=== PATIENT | female | born 1950 | race Caucasian/White ===

== ENCOUNTER 2017-07-27 10:29 | Inpatient (IN) | payer MEDICARE, BC ==
--- NOTE | 2017-07-14 16:45 | HP ---
HISTORY AND PHYSICAL: DATE OF ADMISSION/SURGERY: 07/27/17 DATE OF OFFICE VISIT: 07/14/17. SURGEON: Marilynn Chopra MD * (DICTATED BY CHARISMA BEJARANO) PROCEDURE: Right total knee arthroplasty. CHIEF COMPLAINT: Right knee pain. HISTORY OF PRESENT ILLNESS: Ms. Mascorro is a 67-year-old female with complaints of right knee pain secondary to advanced osteoarthritis. She has failed conservative management and has elected to proceed with a right total knee arthroplasty, which is scheduled for 07/27/[address] Chopra. PAST MEDICAL HISTORY: Rheumatic disease, tricuspid valve, mitral valve disorder , tachycardia, hypothyroidism, depression, migraines, history of breast cancer, and sleep apnea. PAST SURGICAL HISTORY: Hysterectomy, appendectomy, lumpectomy, right knee ligament repair, right knee arthroscopy, bilateral feet surgery, tonsillectomy. CURRENT MEDICATIONS: 1. Sumatriptan. 2. Verapamil. 3. Cymbalta. 4. Diazepam. 5. Multivitamin. 6. Aspirin. 7. Levothyroxine. 8. Reclast. 9. Vitamin D3. 10. CoQ10. 11. Pravastatin sodium. ALLERGIES: None. FAMILY HISTORY: Cancer and heart disease. SOCIAL HISTORY: A 67-year-old female. Lives with her spouse. She does not smoke or use drugs. REVIEW OF SYSTEMS: A complete 14-point review of systems was reviewed with the patient, it was all negative or noncontributory. PHYSICAL EXAMINATION GENERAL: She is well developed, well nourished, in no acute distress. VITAL SIGNS: She stands 5 feet 8 inches tall, weighs 187 pounds. Her blood pressure is 108/70, her heart rate is 69. HEENT: Normocephalic, atraumatic. NECK: Supple. No palpable lymph nodes. PULMONARY: The lungs are clear to auscultation bilaterally. CARDIO: Regular rate and rhythm. Strong S1, S2. ABDOMEN: Soft, nontender, and nondistended. MUSCULOSKELETAL: Right lower extremity, the skin is intact. There are no open wounds or abrasions. Tenderness over the medial and lateral joint line. 5 to 125 degrees range of motion. 2+ dorsalis pedis pulses, intact sensation. 5/5 lower extremity strength. NEUROLOGICAL: Alert and oriented x3. Cranial nerves II through XII are intact. ASSESSMENT AND PLAN: Ms. Mascorro is a 67-year-old female with complaints of right knee pain secondary to advanced osteoarthritis. She has failed conservative management and has elected to proceed with a right total knee arthroplasty, which is scheduled for 07/27/[address] Chopra discussed the risks and benefits of the surgery at today's visit and all of her questions were answered. Percocet, Coumadin, and Colace were sent to her pharmacy for postoperative pain control and DVT prophylaxis. She will see Dr. Chopra back 2 weeks after the surgery. CHARISMA BEJARANO [id number]/[facility] #: [id number] YOAV
[~2017-07-27 10:29] MED LIST: Buffered Lidocaine 0.9% SYRIN* 5 ML/SYR SYRINGE INTRADERM ONE; Dexamethasone IV* 4 MG/ML 1 ML (4 MG) IV SLOW PU ONE; Famotidine IV* 10 MG/ML 2 ML (20 mg) IV ONE
[2017-07-27] MEDS ORDERED: Famotidine IV* 10 MG/ML 2 ML (20 mg) ONE (10:40)
[2017-07-27] MEDS ORDERED: Dexamethasone IV* 4 MG/ML 1 ML (4 MG) ONE (10:40)
[2017-07-27] MEDS ORDERED: Buffered Lidocaine 0.9% SYRIN* 5 ML/SYR SYRINGE ONE (10:40)
[2017-07-27] MEDS ORDERED: ceFAZolin 2 GM PREMIX (*) 50 ML IVPB ONE (10:40)
[2017-07-27] MEDS ORDERED: Midazolam* 1 MG/ML 5 ML VIAL (5 MG) ONE ×2 (13:22→15:22)
[2017-07-27] MEDS ORDERED: KETAMINE HCL* 50 MG/ML 10 ML VIAL ONE (13:22)
[2017-07-27] MEDS ORDERED: Morphine PF AMP (0.5MG/ML)* 5 MG/10 ML AMP ONE (13:22)
[2017-07-27] MEDS ORDERED: Lidocaine 2% PF * 5 ML VIAL ONE (14:28)
[2017-07-27] MEDS ORDERED: Ondansetron INJ* 2 MG/ML VIAL IV PRN (14:59)
[2017-07-27] MEDS ORDERED: oxyCODONE/Acetamin 5/325 MG* TAB PO PRN (14:59)
[2017-07-27] MEDS ORDERED: DiMENhydriNATE IV* 50 MG/ML VIAL IV PUSH PRN (14:59)
[2017-07-27] MEDS ORDERED: Nalbuphine* 20 MG/ML 1 ML VIAL IV PRN ×2 (14:59)
[2017-07-27] MEDS ORDERED: Naloxone* 0.4 MG/ML 1 ML VIAL IV PRN (14:59)
[2017-07-27] MEDS ORDERED: Scopolamine 1.5 mg* PATCH TRANSDERM SCH (15:00)
[2017-07-27] MEDS ORDERED: Ropivacaine* 300 MG in NS 0.9% 250 ML* 240 ML EPIDURAL SCH (15:00)
[2017-07-27] MEDS ORDERED: Polyethylene Glycol 3350* 17 GM PACKET PO PRN (16:46)
[2017-07-27] MEDS ORDERED: Bisacodyl SUPP* 10 MG SUPP PR PRN (16:46)
[2017-07-27] MEDS ORDERED: Acetaminophen TAB* 325 MG PO PRN (16:46)
[2017-07-27] MEDS ORDERED: SUMAtriptan SQ* 6 MG/0.5 ML VIAL SUBCUT PRN (16:50)
[2017-07-27] MEDS ORDERED: VERAPAMIL HCL 120 MG PO SCH ×2 (18:00)
--- NOTE | 2017-07-27 19:09 | RAD ---
INDICATION: Status post total right knee replacement surgery. TECHNIQUE: 2 views of the right knee were obtained. FINDINGS: The patient is status post total right knee replacement surgery. The bones and prostheses are in normal alignment. There is a surgical drain present along the anterior aspect of the knee. IMPRESSION: STATUS POST TOTAL RIGHT KNEE REPLACEMENT SURGERY.
[2017-07-27] MEDS ORDERED: oxyCODONE/Acetamin 5/325 MG* TAB ONE (21:48)
[2017-07-27] MEDS: oxyCODONE/Acetamin 5/325 MG* TAB PO PRN (21:54)
[2017-07-27] MEDS ORDERED: Warfarin TAB(*) 6 MG PO ONE (22:30)
[2017-07-27] MEDS: Docusate CAP* 100 MG PO SCH (22:44)
[2017-07-27] MEDS: CMCS: Pravastatin (NF) 20 MG TAB PO SCH (22:44)
[2017-07-27] MEDS: ceFAZolin 1 GM VIAL(*) 1 GM in NS 0.9% 50 ML* 50 ML IVPB SCH (22:45)
[2017-07-27] MEDS: DULoxetine DR CAP* 30 MG CAP.DR PO SCH (22:49)
--- NOTE | 2017-07-28 00:54 | CONS ---
CC: Marilynn Chopra MD; Humaira Vu MD* CONSULTATION REPORT: DATE OF CONSULT: 07/27/17 PROVIDE REQUESTING CONSULTATION: Marilynn Chopra MD ATTENDING PHYSICIAN: Alfonzo Oleary MD (dictated by Daniela Conte NP). REASON FOR CONSULTATION: Medical co-management in a patient with a history of rheumatic disease, valvular heart disease, paroxysmal SVT, hypothyroidism, and sleep apnea, who presented to the hospital for an elective right total knee arthroplasty with Dr. Chopra today. HISTORY OF PRESENT ILLNESS: Ms. Mascorro is a 67-year-old female with past medical history significant for rheumatic disease, valvular heart disease, tachycardia, SVT, hypothyroidism, depression, migraines, remote history of breast cancer, sleep apnea, palpitations, and osteoarthritis who presented to the hospital today for an elective right total knee arthroplasty with Dr. Chopra. According to the patient, she has been in her usual state of health leading up to her elective knee replacement. The patient had preop labs drawn on 07/14/17 at which time, she also had a urinalysis that had E. coli in it. The patient was asymptomatic at that time and the patient had 10 to 25,000 of E. coli. Due to her upcoming surgery, she was placed on nitrofurantoin and completed a seven-day course. She currently denies any urinary tract symptoms and had urinalysis with no growth repeated on 07/25/17. The patient denies any recent fever, chills, chest pain, shortness of breath, nausea, vomiting, or diarrhea. The patient currently is complaining of some itchiness since her spinal anesthesia. The Hospitalists were asked to evaluate the patient and assess with co-medical management during her postoperative period. PAST MEDICAL HISTORY: 1. Rheumatic disease. 2. Valvular heart disease. 3. History of supraventricular tachycardia. 4. Tachycardia. 5. Hypothyroidism. 6. Depression. 7. Migraines. 8. Breast cancer, status post chemo and radiation. 9. Palpitations. 10. Obstructive sleep apnea, not currently treated. 11. Osteoarthritis. PAST SURGICAL HISTORY: 1. Status post hysterectomy. 2. Status post appendectomy. 3. Status post right breast lumpectomy. 4. Status post right knee ligament repair. 5. Status post right knee arthroscopy. 6. Status post bilateral foot surgery. 7. Status post tonsillectomy. HOME MEDICATIONS: Include: 1. Imitrex 6 mg/0.5 mL 1 vial subcutaneous as needed for severe headache, may repeat once in 24 hours. 2. Verapamil ER 120 mg oral daily. 3. Cymbalta 90 mg oral daily. 4. Diazepam 5 mg oral 2 to 3 times daily as needed for anxiety. 5. Multivitamin 1 tablet oral daily. 6. Aspirin 81 mg oral daily. 7. Levothyroxine 75 mcg oral daily. 8. Reclast injection yearly. 9. Vitamin D3 2000 units oral daily. 10. COQ10 200 mg oral daily. 11. Pravastatin 20 mg oral daily. 12. Vitamin B12 1000 mcg oral daily. 13. Fluticasone 50 mcg 2 sprays each nares daily as needed for nasal congestion. 14. Excedrin 500/65 mg oral as needed for headache. ALLERGIES: No known drug allergies. FAMILY HISTORY: The patient's mother had a history of colon cancer and breast cancer. The patient's father had a history of a myocardial infarction and passed of pancreatic cancer. Her grandparents may have had a history of coronary artery disease that she is unsure. She denies any family history of diabetes mellitus. SOCIAL HISTORY: The patient is a former smoker smoking one and a half pack a day for approximately 12 years. She quit at age 25. She denies tobacco or recreational drug use. She lives with her . Her , Deon Mascorro, will be her surrogate decision maker in the event she is unable to make decision for herself. REVIEW OF SYSTEMS: I performed a 14-point review of systems. All the pertinent positives and negatives are mentioned in the history of present illness. The remaining review of systems are negative. PHYSICAL EXAMINATION: General Appearance: The patient is alert, pleasant, appears to be in no acute distress. Vital Signs: Temperature 98.6, heart rate 67, respiratory rate 16, O2 sat 100% on 3 L via nasal cannula, blood pressure 100/61. HEENT: Normocephalic, atraumatic. Pupils are equal and reactive to light. Extraocular movements are intact. Respiratory: There is no accessory muscle use. Lungs are clear to auscultation bilaterally. Cardiovascular: Regular rate and rhythm. S1 and S2 present. There are no murmurs, rubs, or gallops. Abdomen: Soft, nontender, nondistended. Bowel sounds present present x4. Extremities: There is no lower extremity edema. DP and PT pulses are 2+ and symmetric. Musculoskeletal: There is no clubbing or cyanosis noted. At this point, the patient is unable to dorsi and plantarflex due to her spinal anesthesia and epidural. She has limited feeling in her lower extremities and reports tingling. Neurological: The patient is alert and oriented x4. Cranial nerves II through XII are grossly intact. Psychological: The patient is calm and cooperative. Skin: There are no rashes or abnormalities seen. The patient has a dressing to her right knee, which is clean, dry, and intact with a Hemovac drain in place draining serosanguineous drainage. DIAGNOSTIC STUDIES/LAB DATA: Preoperative labs from 07/14/17, sodium 140, potassium 3.9, chloride 104, CO2 31, BUN 17, creatinine 0.70, and glucose 84. White blood cell count 6.3, hemoglobin 13.5, hematocrit 40, and platelet count 223,000. Urinalysis significant for UTI and E. coli. Repeat urinalysis on with no growth. Hemoglobin A1c from 07/14/17 5.7. IMPRESSION: Ms. Mascorro is a 67-year-old female with past medical history significant for rheumatic disease, valvular heart disease, supraventricular tachycardia, tachycardia, hypothyroidism, depression, migraines, breast cancer, obstructive sleep apnea, not treated, palpitations, and osteoarthritis, who presented to the hospital today for an elective right total knee arthroplasty with Dr. Chopra. Hospitalists were asked to assist with co-medical management in this patient during her hospitalization. ASSESSMENT AND PLAN: 1. Status post right total knee arthroplasty. Management per Orthopedic Surgery. The patient will be on epidural overnight and then changed to pain regimen per Orthopedic Surgery. The patient will also be placed on a bowel regimen. Her H and H will be trended. She will have a urinary catheter in place until postop day #1 after her epidural was removed. The patient will have physical therapy and occupational therapy. 2. Recent urinary tract infection. The patient had an E. coli urinary tract infection with her preoperative labs. Her urinary currently has no growth and she completed a 7-day course of antibiotics. 3. History of impaired glucose. The patient's hemoglobin A1c was 5.7. 4. History of palpitations and supraventricular tachycardia. The patient will be continued on her home verapamil with holding parameters for systolic blood pressures less than a 100. 5. Valvular heart disease with trace aortic insufficiency, mitral valve insufficiency, and mitral valve prolapse. We will just monitor the patient's fluid status and monitor for any other problems. 6. Obstructive sleep apnea. The patient does not use a CPAP as she was unable to tolerate in the past and she does not have a dental appliance . She will be monitored in 2 hours in PACU and then be monitored on capnography overnight. 7. History of breast cancer, status post right breast lumpectomy, chemo and radiation. 8. Hypothyroidism. The patient's last TSH was 1.52 on 04/11/17. She will be continued on her home levothyroxine. 9. Migraines. The patient will be continued on her home Imitrex as needed. 10. Anxiety. The patient will be continued on as needed diazepam. The patient reports that she rarely uses the diazepam at home. 11. Fluids, electrolytes, and nutrition. The patient will be on clear liquids. Advance diet as tolerated to regular diet. 12. Code status: Full code. 13. DVT prophylaxis: The patient would be on Lovenox bridged to warfarin per Orthopedic Surgery. 14. Disposition. Inpatient with disposition per Orthopedic Surgery. TIME SPENT: Time for this consultation was approximately 45 minutes, greater than half of that was spent with the patient and discussing medications , past medical history, and the events leading up to her arrival today and performing a physical examination. The case has been reviewed with the attending, Dr. Oleary, who agrees with the plan of care. DANIELA CONTE, BECKY [id number]/[facility] #: [id number] YOAV
[2017-07-28] MEDS: oxyCODONE/Acetamin 5/325 MG* TAB PO PRN ×4 (03:58→19:42)
[2017-07-28] MEDS: Levothyroxine TAB* 75 MCG TAB PO SCH (05:50)
[2017-07-28] MEDS: ceFAZolin 1 GM VIAL(*) 1 GM in NS 0.9% 50 ML* 50 ML IVPB SCH ×2 (05:50→14:02)
[2017-07-28] MEDS ORDERED: tiZANidine TAB* 2 MG PO PRN (06:00)
[2017-07-28] MEDS ORDERED: oxyCODONE/Acetamin 5/325 MG* TAB PO PRN (06:00)
[2017-07-28] MEDS ORDERED: Morphine INJ* 2 MG/ML 1 ML SYRINGE (TWO MG - NEW SYRINGE VERSION) IV PRN (06:00)
[2017-07-28] MEDS ORDERED: diPHENhydraMINE IV* 50 MG/ML 1 ml VIAL (BENADRYL) IV PRN (06:00)
[2017-07-28] MEDS ORDERED: Ondansetron TAB* 4 MG PO PRN (06:00)
[2017-07-28] MEDS ORDERED: Diazepam TAB(*) 5 MG PO PRN (06:00)
[2017-07-28 06:43] LABS: Hematocrit 27 % (35-47); Hemoglobin 8.9 g/dl (12.0-16.0)
[2017-07-28 06:57] LABS: BUN/Creatinine Ratio 13.2 (8-20); Calcium 7.6 mg/dL (8.6-10.3); EGFR African American 60.8 (>60); EGFR Non-African American 47.3 (>60); Potassium 4.4 mmol/L (3.5-5.0)
[2017-07-28] MEDS: oxyCODONE TAB* 5 MG TAB PO PRN ×2 (07:40→13:07)
[2017-07-28] MEDS: DULoxetine DR CAP* 30 MG CAP.DR PO SCH ×2 (08:23→17:40)
[2017-07-28] MEDS: Magnesium Hydroxide LIQ* 30 ML UDC PO PRN (08:23)
[2017-07-28] MEDS: Docusate CAP* 100 MG PO SCH ×2 (08:23→19:42)
--- NOTE | 2017-07-28 09:26 | PN ---
Subjective Date of Service: 07/28/17 Interval History: Patient seen and examined at bedside. Denies fever, chills, shortness of breath , chest discomfort, N/V/D. Pt states that her blood pressure runs lower at baseline. Family History: Unchanged from Admission Social History: Unchanged from Admission Past Medical History: Unchanged from Admission Objective Active Medications: Acetaminophen (Tylenol Tab*) 650 mg PO Q4H PRN Reason: PAIN OR TEMPERATURE Bisacodyl (Dulcolax Supp*) 10 mg PA DAILY PRN Reason: constipation Diazepam (Valium Tab(*)) 5 mg PO TID PRN Reason: ANXIETY Diphenhydramine HCl (Benadryl Iv*) 12.5 mg IV Q6H PRN Reason: PRURITIS Docusate Sodium (Colace Cap*) 100 mg PO BID DOROTHY Duloxetine HCl (Cymbalta Cap*) 30 mg PO QAM DOROTHY Duloxetine HCl (Cymbalta Cap*) 60 mg PO QPM DOROTHY Enoxaparin Sodium (Lovenox(*)) 30 mg SUBCUT Q24H DOROTHY Cefazolin Sodium 1 gm/ Sodium (Chloride) 50 mls @ 200 mls/hr IVPB Q8H DOROTHY Stop: 07/28/17 14:44 Lactated Ringer's (Lactated Ringers 1000 Ml Bag*) 1,000 mls @ 100 mls/hr IV PER [facility] Lactulose (Lactulose*) 30 ml PO Q6H PRN Reason: constipation Levothyroxine Sodium (Synthroid Tab*) 75 mcg PO DAILY@0600 DOROTHY Magnesium Hydroxide (Milk Of Magnesia Liq*) 30 ml PO Q6H PRN Reason: constipation Morphine Sulfate (Morphine Inj (Syringe)*) 2 mg IV Q2H PRN Reason: PAIN Nf: Verapamil Hcl [ Verapamil Hcl Er] 120 Mg 120 mg PO QPM DOROTHY Ondansetron HCl (Zofran Tab*) 4 mg PO Q6H PRN Reason: NAUSEA Oxycodone HCl (Roxycodone Tab*) 10 mg PO Q4H PRN Reason: SEVERE PAIN Oxycodone/Acetaminophen (Percocet 5/325 Tab*) 1 tab PO Q3H PRN Reason: PAIN - MODERATE Oxycodone/Acetaminophen (Percocet 5/325 Tab*) 2 tab PO Q3H PRN Reason: PAIN - MODERATE Pharmacy Profile Note (Scopolomine Patch Remove*) 1 note PATCH OFF .AFTER 72 HOURS ONE Stop: 07/30/17 15:05 Pharmacy Profile Note (Coumadin Daily Reminder*) 1 note FOLLOW UP 1700 DOROTHY Polyethylene Glycol/Electrolytes (Miralax*) 17 gm PO DAILY PRN Reason: Constipation Pravastatin Sodium (Pravachol (Nf)) 20 mg PO QPM DOROTHY Sumatriptan Succinate (Imitrex Sq*) 6 mg SUBCUT ONCE PRN Reason: MIGRAINES Tizanidine HCl (Zanaflex Tab*) 4 mg PO TID PRN Reason: LEG CRAMPING Vital Signs 07/27/17 07/27/17 07/27/17 10:45 16:47 16:50 Temperature 97.2 F 98.6 F Pulse Rate 72 76 70 Respiratory 16 14 14 Rate Blood Pressure 111/63 95/82 104/60 (mmHg) O2 Sat by Pulse 98 98 97 Oximetry 07/27/17 07/27/17 07/27/17 16:55 16:59 17:15 Temperature Pulse Rate 68 68 66 Respiratory 14 14 16 Rate Blood Pressure 104/63 104/63 102/63 (mmHg) O2 Sat by Pulse 99 99 100 Oximetry 07/27/17 07/27/17 07/27/17 17:30 17:45 18:00 Temperature Pulse Rate 67 58 67 Respiratory 16 18 16 Rate Blood Pressure 101/61 97/64 100/62 (mmHg) O2 Sat by Pulse 100 98 99 Oximetry 07/27/17 07/27/17 07/27/17 18:30 19:00 19:05 Temperature Pulse Rate 62 61 63 Respiratory 16 16 18 Rate Blood Pressure 101/62 103/62 104/56 (mmHg) O2 Sat by Pulse 100 100 100 Oximetry 07/27/17 07/27/17 07/27/17 19:24 19:30 19:45 Temperature Pulse Rate 65 65 63 Respiratory 18 18 18 Rate Blood Pressure 100/59 108/58 106/74 (mmHg) O2 Sat by Pulse 100 100 100 Oximetry 07/27/17 07/27/17 07/27/17 19:55 20:25 20:30 Temperature 96.7 F Pulse Rate 67 68 Respiratory 18 18 18 Rate Blood Pressure 101/87 101/56 (mmHg) O2 Sat by Pulse 100 100 Oximetry 07/27/17 07/27/17 07/27/17 21:36 21:54 21:59 Temperature 97.3 F 96.7 F Pulse Rate 68 68 Respiratory 16 18 18 Rate Blood Pressure 94/52 101/56 (mmHg) O2 Sat by Pulse 97 100 Oximetry 07/27/17 07/27/17 07/27/17 22:13 23:13 23:30 Temperature Pulse Rate Respiratory 18 18 18 Rate Blood Pressure (mmHg) O2 Sat by Pulse 95 Oximetry 07/27/17 07/28/17 07/28/17 23:54 00:00 00:52 Temperature Pulse Rate Respiratory 12 13 Rate Blood Pressure 98/67 (mmHg) O2 Sat by Pulse 93 Oximetry 07/28/17 07/28/17 07/28/17 01:00 02:00 03:58 Temperature Pulse Rate Respiratory 8 8 18 Rate Blood Pressure (mmHg) O2 Sat by Pulse 99 Oximetry 07/28/17 07/28/17 07/28/17 04:00 04:29 05:56 Temperature 97 F Pulse Rate 62 Respiratory 10 12 12 Rate Blood Pressure 94/54 (mmHg) O2 Sat by Pulse 100 100 98 Oximetry 07/28/17 07/28/17 07/28/17 05:58 07:40 07:49 Temperature 97.6 F Pulse Rate 71 Respiratory 12 12 15 Rate Blood Pressure 99/52 (mmHg) O2 Sat by Pulse 100 Oximetry Oxygen Devices in Use Now: None Appearance: NAD, sitting up in a chair Ears/Nose/Mouth/Throat: Mucous Membranes Moist Respiratory: Symmetrical Chest Expansion and Respiratory Effort, Clear to Auscultation Cardiovascular: NL Sounds; No Murmurs; No JVD, RRR Abdominal: NL Sounds; No Tenderness; No Distention Extremities: No Edema Skin: No Rash or Ulcers, - - Dressing to right knee clean, dry and intact Neurological: Alert and Oriented x 3, NL Muscle Strength and Tone Lines/Tubes/Other Access: Clean, Dry and Intact Peripheral IV - site benign Nutrition: Taking PO's Result Diagrams: 07/28/17 06:16 07/28/17 06:16 Assess/Plan/Problems-Billing Assessment: Ms. Mascorro is a 67 yo female with PMH significant for rheumatic disease, valvular heart disease, SVT, tachycardia, palpitations, hypothyroidism, depression, migraines, anxiety, breast CA, LINDY, and osteoarthritis who presented to the hospital for an elective right total knee replacement with Dr. Chopra on 07/27/17. - Patient Problems (1) Status post total right knee replacement Code(s): Z96.651 - PRESENCE OF RIGHT ARTIFICIAL KNEE JOINT SNOMED Code(s): 7220561795510 Comment: - POD #1, management per orthopedics - Trend HH - Continue OT/PT, pain management and bowel regimen (2) History of PSVT (paroxysmal supraventricular tachycardia) Code(s): Z86.79 - PERSONAL HISTORY OF OTHER DISEASES OF THE CIRCULATORY SYSTEM SNOMED Code(s): 818733966349252 Comment: - with palpitations - Continue verapamil with hold parameters (3) Valvular heart disease Comment: - Trace AI, MV I, MVP (4) LINDY (obstructive sleep apnea) Code(s): G47.33 - OBSTRUCTIVE SLEEP APNEA (ADULT) (PEDIATRIC) SNOMED Code(s): 06517732 Comment: - Not treated, unable to tolerate CPAP (5) Hypothyroidism Code(s): E03.9 - HYPOTHYROIDISM, UNSPECIFIED SNOMED Code(s): 89910412 Comment: - TSH 1.52 on 04/11/17 - Continue levothyroxine (6) History of breast cancer Code(s): Z85.3 - PERSONAL HISTORY OF MALIGNANT NEOPLASM OF BREAST SNOMED Code( s): 003938094 Comment: - S/P right breast lumpectomy, chemo and radiation (7) Migraines Code(s): G43.909 - MIGRAINE, UNSP, NOT INTRACTABLE, WITHOUT STATUS MIGRAINOSUS SNOMED Code(s): 34647004 (8) Anxiety Code(s): F41.9 - ANXIETY DISORDER, UNSPECIFIED SNOMED Code(s): 06792287 Comment: - Continue diazepam PRN (9) DVT prophylaxis Code(s): KTU4724 - SNOMED Code(s): 233752497 Comment: - Lovenox bridge to warfarin (10) Full code status Code(s): Z78.9 - OTHER SPECIFIED HEALTH STATUS SNOMED Code(s): 825003302 Status and Disposition: Inpatient. Disposition per Orthopedics. Thank you for this consult. Will sign off at this time. Please call with any questions.
--- NOTE | 2017-07-28 11:37 | PN ---
Progress Note - Progress Note Date of Service: 07/28/17 SOAP: Subjective: []Patient seen OOB in chair, doing well, minimal complaints of right knee pain. Denies SOB, CP, or dizziness. A little "foggy" from the Percocet just given. Objective: [] Vital Signs Temp 97.6 F 07/28/17 07:49 Pulse 71 07/28/17 07:49 Resp 14 07/28/17 09:44 BP 99/52 07/28/17 07:49 Pulse Ox 99 07/28/17 11:28 Intake & Output 07/27/17 07/28/17 07/28/17 18:59 06:59 18:59 Intake Total 2450 1190 120 Output Total 850 750 Balance 1600 440 120 Weight 188 lb 3.2 oz Intake: IV Fluids 2450 890 LR 2400 890 NS 50ML, Cefazolin 2G 50 Oral 300 120 Output: [place] 850 750 Laboratory Results - last 24 hr 07/28/17 07/28/17 07/28/17 06:16 06:16 06:16 Hgb 8.9 L Hct 27 L INR (Anticoag Therapy) 0.98 Sodium 142 Potassium 4.4 Chloride 108 Carbon Dioxide 27 Anion Gap 7 BUN 15 Creatinine 1.14 H Est GFR ( Amer) 60.8 Est GFR (Non-Af Amer) 47.3 BUN/Creatinine Ratio 13.2 Glucose 139 H Calcium 7.6 L Right knee dressings dry and intact, hemovac drain discontinued without complication this am by Dr. Chopra Flexion to 90 while in chair calf NT and soft neuro intact distally with + PF/DF right ankle Assessment: []s/p Right total knee arthoplasty POD #1 Plan: []PT/OT WBAT RLE Home when PT/OT goals mastered Coumadin with Lovenox bridge- 8 mg today
[2017-07-28] MEDS: Enoxaparin(*) 30 MG/0.3 ML SYR SUBCUT SCH (14:02)
[2017-07-28] MEDS ORDERED: Warfarin TAB(*) 4 MG PO ONE (17:00)
[2017-07-28] MEDS: CMCS: Pravastatin (NF) 20 MG TAB PO SCH (17:39)
[2017-07-28] MEDS ORDERED: Verapamil SR TAB* 240 MG PO SCH (18:00)
--- NOTE | 2017-07-28 19:13 | OP ---
DATE OF OPERATION: 07/27/17 - ROOM #347 DATE OF : 46 SURGEON: Marilynn Chopra MD [facility] CONSULTANT: CHARISMA Evangelista. Ms. Silva did help throughout the procedure with preparation of the leg, wound retraction, manipulation of the knee and wound closure. ANESTHESIOLOGIST: Dr. García. ANESTHESIA: Spinal. PRE-OP DIAGNOSIS: Severe end-stage degenerative osteoarthritis of the right knee joint with valgus deformity. POST-OP DIAGNOSIS: Severe end-stage degenerative osteoarthritis of the right knee joint with valgus deformity. OPERATIVE PROCEDURE: Right total knee arthroplasty. COMPLICATIONS: None. ESTIMATED BLOOD LOSS: 300 cc. TOURNIQUET TIME: 47 minutes. SPECIMENS: Bone and cartilage sent to Pathology. HARDWARE USED: Cemented [employer] total knee arthroplasty hardware. Two packages of Simplex bone cement. For the femur, a size 5 right posterior stabilized Legion narrow femoral component. For the tibia, a size 4 tibial base plate. For the insert, an 11 mm posterior stabilized articular insert and for the patella, 32-mm 3-peg all poly patella with 7.5 thickness. BRIEF HISTORY/INDICATIONS: Ms. Mascorro is a 67-year-old female with years of increasingly severe right knee pain. She also developed valgus deformity over the last 2 years. Conservative treatment with antiinflammatories, pain medications, intraocular injections, and physical therapy did not resolve her pain. Radiographs showed severe end-stage valgus arthritis of the knee joint. Due to continued pain and decreased quality of life, the patient elected to undergo right total knee arthroplasty. Informed consent was obtained from the patient. She understood the risks of surgery included, but were not limited to bleeding, infection, damage to nearby structures, continued pain, need for further surgery, intraoperative fracture, nerve palsy, hardware failure or loosening, knee stiffness, loss of motion, stroke, heart attack, blood clot, and . She wished to proceed. INTRAOPERATIVE FINDINGS: Intraoperatively, the patient was noted to have a 15 degrees valgus deformity at the start of the case. She had severe tricompartmental wear of the cartilage. Excessive wear of the lateral tibial plateau with abnormal osteophyte formation. Lateral femoral condylar hypoplasia was noted. DESCRIPTION OF PROCEDURE: Ms. Mascorro was identified in the preanesthesia unit. Her right lower extremity was marked as the correct operative side. Informed consent was signed and placed in the chart. The patient was taken to the operating room and placed under spinal anesthesia. A Mendoza catheter was placed. Tourniquet was placed on the right thigh. The right lower extremity was prepped and draped in the usual sterile fashion. Preop time-out was made to correctly identify the patient's side and site. Appropriate preoperative antibiotics were given within 1 hour of incision. Tourniquet was inflated. A 12 cm midline incision was made with a 10 blade and carried down to the extensor mechanism. A new 10 blade used to make a standard medial parapatellar arthrotomy. The patella was subluxed laterally. Electrocautery was used to subperiosteally elevate soft tissue off the superomedial tibia to the mid sagittal plane. The knee was flexed up. There was no anterior horn of the lateral meniscus. There was no ACL. A drill was used to enter the distal femur. Intramedullary distal femoral cutting guide was pinned on the distal femur. Oscillating saw was used to make the appropriate distal femoral cut. Next, the external rotation guide pinned on the distal femur. The distal femur was sized to a size 5. Size 5 multi-cutting jig was pinned on the distal femur and the oscillating saw was used to make the appropriate 4 chamfer cuts. PCL was completely released. The tibia was subluxed anteriorly. Extramedullary tibial cutting guide was pinned on the proximal tibia. Oscillating saw was used to make the proximal tibial cut. The bone was carefully removed. The knee was brought out into full extension. The spacer block had good fit and full extension. Medial and lateral ligamentous balancing was acceptable. Flexion and extension gaps were well balanced. Lamina program checker was placed both medially and laterally. Any remaining meniscus was carefully removed from the medial and lateral compartments. Posterior osteophytes were removed using a curved osteotome. Trial 5 right narrow femoral component was impacted on to the distal femur and had good fit. The box for this posterior stabilized implant was prepared using a reamer and box cut osteotome. Trial size 4 tibial tray and an 11-mm insert trial was placed. The knee was taken through range of motion. There was full extension to 130 degrees of flexion with satisfactory patellofemoral tracking. The patella was everted. A 7 mm of patellar bone and cartilage was carefully removed using an oscillating saw. The patella was sized to a size 32. Three peg holes were drilled through the size 32 guide. A 7.5 thickness 32 patella trial was placed. The knee was taken through range of motion and had satisfactory patellofemoral tracking. All trials were carefully removed. The tibia was subluxed anteriorly and sized to a size 4. Proximal tibia was prepared using a size 4 keel punch. All bony cut surfaces were copiously irrigated with sterile saline and dried. The final implants were cemented into place starting with the tibia followed by the femur and last the patella. An 11-mm insert trial was placed and the knee was brought out into full extension. The tourniquet was turned down at 47 minutes. The knee was copiously irrigated with sterile saline. Once the cement had fully cured, the insert trial was removed. Any excess cement was carefully removed from around the hardware and capsule. Electrocautery was used to obtain meticulous hemostasis. An 11 mm insert trial was locked into position on the tibial tray. Stability of the insert was checked and rechecked and noted to be stable. The knee was copiously irrigated with sterile saline. The extensor mechanism was reapproximated using interrupted #1 Vicryl over a medium Hemovac drain. The rest of the incision was closed in a layered fashion using 0 and 2-0 Vicryl. The skin was closed using running 3-0 nylon suture. Sterile Xeroform, 4x4's, and Webril were used to cover the incision. Ayan wrap and cold pack were placed over this. The patient's anesthesia was reversed without difficulty. She was taken to the PACU in stable condition. Intended weightbearing will be weightbearing as tolerated. Intended DVT prophylaxis will be Coumadin with a Lovenox bridge. [id number]/[facility] #: [id number] [facility]
[2017-07-29] MEDS: oxyCODONE/Acetamin 5/325 MG* TAB PO PRN ×4 (02:55→15:01)
[2017-07-29] MEDS: Levothyroxine TAB* 75 MCG TAB PO SCH (06:00)
[2017-07-29 08:41] LABS: Hematocrit 25 % (35-47); Hemoglobin 8.5 g/dl (12.0-16.0); Mean Platelet Volume 8 um3 (7.4-10.4)
[2017-07-29 08:52] LABS: BUN/Creatinine Ratio 29.5 (8-20); Calcium 8.1 mg/dL (8.6-10.3); EGFR African American 125.1 (>60); EGFR Non-African American 97.2 (>60); Potassium 3.9 mmol/L (3.5-5.0)
[2017-07-29] MEDS: Docusate CAP* 100 MG PO SCH (08:52)
[2017-07-29] MEDS: Magnesium Hydroxide LIQ* 30 ML UDC PO PRN (08:52)
[2017-07-29] MEDS: DULoxetine DR CAP* 30 MG CAP.DR PO SCH (08:52)
--- NOTE | 2017-07-29 09:15 | PN ---
Progress Note - Progress Note Date of Service: 07/29/17 SOAP: Subjective: Pt. is alert, pain controlled, moderate today, using crutches. Objective: RLE - dressing changed, inc c/d/i. distally nvi. mod effusion. Vital Signs: Temp Pulse Resp BP Pulse Ox 98.5 F 94 16 94/45 96 07/29/17 08:21 07/29/17 08:21 07/29/17 08:54 07/29/17 08:21 07/29/17 08:54 Laboratory Results - last 24 hr 07/29/17 07/29/17 07/29/17 08:18 08:18 08:18 Hgb 8.5 L Hct 25 L Plt Count 150 MPV 8 INR (Anticoag Therapy) 1.35 H Sodium 134 D Potassium 3.9 Chloride 101 Carbon Dioxide 28 Anion Gap 5 BUN 18 Creatinine 0.61 Est GFR ( Amer) 125.1 Est GFR (Non-Af Amer) 97.2 BUN/Creatinine Ratio 29.5 H Glucose 126 H Calcium 8.1 L Assessment: 67 yo F pod 2 s/p RTKA Plan: pt/ot wbat rle lovenox today coumadin for 1 mth d/c to home today
[2017-07-29 12:46] VITALS: BP 106/52
[2017-07-29] MEDS: Enoxaparin(*) 30 MG/0.3 ML SYR SUBCUT SCH (13:17)
--- NOTE | 2017-07-29 13:49 | DS ---
AMENDED REPORT NOW INCLUDES COSIGNER DESIGNATION - ESIGNED BEFORE ADJUSTMENT DISCHARGE SUMMARY: DATE OF ADMISSION: 07/27/17 DATE OF DISCHARGE: 07/29/17 PROVIDER: Marilynn Chopra MD * (DICTATED BY CHARISMA BORJA) ADMITTING DIAGNOSIS: Severe end-stage osteoarthritis of the right knee. DISCHARGE DIAGNOSIS: Severe end-stage osteoarthritis of the right knee, status post right total knee arthroplasty. SECONDARY DIAGNOSES: 1. Mitral valve disorder. 2. Tachycardia 3. Hypothyroidism. 4. Depression. 5. Migraines. 6. History of breast cancer. 7. Sleep apnea. HISTORY OF PRESENT ILLNESS: Ms. Mascorro is a 67-year-old female who has had ongoing complaints of right knee pain secondary to advance osteoarthritis. She failed conservative management and elected to proceed with a right total knee arthroplasty. HOSPITAL COURSE: On 07/27/17, the patient was admitted to [facility] and underwent a successful right total knee arthroplasty by Dr. Chopra. She recovered briefly in the postanesthesia care unit and was transferred to short-stay surgical unit in stable condition. Postop day 0, the patient's pain was controlled with oral and IV pain medication. She was given 6 mg of Coumadin that evening on postop day 1. The patient had slight acute blood loss anemia with an H and H of 8.9 and 27. INR was 0.98. The patient continued to have good pain control with oral and IV pain medications. She was able to participate with physical therapy and ambulate with the use of a rolling walker with minimal assist. She was then given 8 mg of Coumadin that evening. Postop day 2, the patient had a stable H and H at 8.5 and 25, INR is 1.35. Patient's pain was controlled with oral pain medication only. She was able to participate more with physical therapy. She was found stable for discharge home. Throughout the hospital course, the patient's vital signs remained stable and she was afebrile. DISCHARGE CONDITION: Stable. DISCHARGE MEDICATIONS: The patient will take: 1. Percocet 5/325 mg 1 to 2 tablets q. 4 to 6 hours p.r.n. pain. 2. Colace 100 mg p.o. b.i.d., p.r.n. constipation. 3. Warfarin 2 mg daily or as instructed by visiting nurse service. She will take 8 mg of 09/30/17, she will take 6 mg on 07/30/17. She will have a redraw of her INR with continued dosing after that. The patient will resume her home medications of: 1. Zanaflex 4 mg p.o. t.i.d., p.r.n. 2. Verapamil 120 mg p.o. q.p.m. 3. Imitrex 6 mg IM as needed. 4. Pravastatin 20 mg p.o. q.p.m. 5. Multivitamin 1 daily. 6. Synthroid 75 mcg p.o. daily. 7. Duloxetine 30 mg p.o. q.a.m., 60 mg p.o. q.p.m. 8. Valium 5 mg p.o. t.i.d. p.r.n. 9. CoQ10 200 mg p.o. daily. 10. Vitamin D3 5000 units p.o. daily. 11. Aspirin 81 mg p.o. daily. 12. Excedrin Tension Headache 1 p.o. q.i.d. p.r.n. DISCHARGE INSTRUCTIONS: The patient is to keep her incision covered with the dressing until postop day 4. She may remove the dressing at that time and shower normally with soap and water. She has understanding not to submerge the incision in a bath tub, hot tub or swimming pool. She will be weightbearing as tolerated with the use of a rolling walker. She will have visiting nurse for home INR draws and wound care. She will have home physical therapy services. She is encouraged to elevate the legs frequently and use cryotherapy often. She will continue with her home exercises when therapy is not present. She will follow up in the office in 10 to [address] Chopra. She has understanding to call the office with any problems or concerns. She has understanding to go directly to the emergency room with any chest pain, shortness of breath, fever greater than 101.5, calf pain or swelling. CHARISMA BORJA [id number]/[facility] #: [id number] YOAV
[2017-07-30] MEDS ORDERED: Scopolomine PATCH Remove* 1 NOTE MISC PATCH OFF ONE (15:04)
== END 2017-07-29 15:08 | disposition home health service (06) | DRG 470 ==
LOC: AA 10:29 → SSU 21:40
PROVIDERS: ADMIT Orthopaedic Surgery Adult Reconstructive Orthopaedic Surgery; ATTEND Orthopaedic Surgery Adult Reconstructive Orthopaedic Surgery
PROC: 0SRC0J9 Replacement of Right Knee Joint with Synthetic Substitute, Cemented, Open Approach (ICD-10-PCS; principal; 2017-07-27 13:00)
DX: M17.11 Unilateral primary osteoarthritis, right knee (principal); I27.2 Other secondary pulmonary hypertension; I47.1 Supraventricular tachycardia; G62.9 Polyneuropathy, unspecified; D62 Acute posthemorrhagic anemia; F32.9 Major depressive disorder, single episode, unspecified; E03.9 Hypothyroidism, unspecified; G43.909 Migraine, unspecified, not intractable, without status migrainosus; F41.9 Anxiety disorder, unspecified; G47.33 Obstructive sleep apnea (adult) (pediatric); I08.3 Combined rheumatic disorders of mitral, aortic and tricuspid valves; I08.0 Rheumatic disorders of both mitral and aortic valves; E66.3 Overweight; M21.061 Valgus deformity, not elsewhere classified, right knee; M25.761 Osteophyte, right knee; Z79.01 Long term (current) use of anticoagulants; Z85.3 Personal history of malignant neoplasm of breast; Z90.710 Acquired absence of both cervix and uterus; Z82.49 Family history of ischemic heart disease and other diseases of the circulatory system; Z92.21 Personal history of antineoplastic chemotherapy; Z86.79 Personal history of other diseases of the circulatory system; Z92.3 Personal history of irradiation; Z80.3 Family history of malignant neoplasm of breast; Z80.0 Family history of malignant neoplasm of digestive organs; Z87.891 Personal history of nicotine dependence; Z87.440 Personal history of urinary (tract) infections; Z68.29 Body mass index [BMI] 29.0-29.9, adult; Z79.82 Long term (current) use of aspirin
CPT/HCPCS: 36415; 62327; 80048; 85014; 85018; 85049; 85610; 87086; 94760; A9270-GY; C1776; J0690; J1100; J1650; J2250; J2300; J2795; J3030

== ENCOUNTER → 2017-08-17 14:04 | Emergency (ER) | payer MEDICARE, BC ==
[~2017-08-17 14:04] MED LIST changes: -Buffered Lidocaine 0.9% SYRIN* 5 ML/SYR SYRINGE INTRADERM ONE; -Dexamethasone IV* 4 MG/ML 1 ML (4 MG) IV SLOW PU ONE; -Famotidine IV* 10 MG/ML 2 ML (20 mg) IV ONE; +Iohexol 350* (CONTRAST) 500 ML MDV IV ONE; +NS 0.9% 1000 ML* 1,000 ML IV ONE
[2017-08-17 15:56] LABS: Urine Bilirubin Negative (Negative); Urine Glucose Negative (Negative); Urine Nitrite Negative (Negative)
[2017-08-17 16:15] LABS: Hematocrit 32 % (35-47); Hemoglobin 10.7 g/dl (12.0-16.0); Mean Corpuscular HGB Conc 33 g/dl (31-36); Mean Corpuscular Hemoglobin 31 pg (27-31); Mean Corpuscular Volume 92 fL (80-97); Mean Platelet Volume 8 um3 (7.4-10.4); Red Cell Distribution Width 14 % (10.5-15); White Blood Count 8.2 10^3/ul (3.5-10.8)
[2017-08-17 16:22] LABS: Albumin 3.7 g/dL (3.2-5.2); Calcium 9.2 mg/dL (8.6-10.3); EGFR African American 127.5 (>60); EGFR Non-African American 99.1 (>60); Globulin 2.9 g/dL (2-4); Potassium 3.3 mmol/L (3.5-5.0); Total Bilirubin 0.4 mg/dL (0.2-1.0); Total Protein 6.6 g/dL (6.4-8.9)
--- NOTE | 2017-08-17 17:33 | RAD ---
Indication: Shortness of breath status post right knee replacement. Contrast: Administered 71.0 ml of OMNIPAQUE 350 mg/ml CTA of the chest was performed after IV contrast administration. Coronal and sagittal reconstructed images were obtained. The pulmonary arterial tree is well opacified. There are no filling defects present to suggest pulmonary embolus. There is no mediastinal or hilar adenopathy noted. The heart demonstrates no pericardial effusion. Aorta demonstrates no evidence of aortic dissection. No aneurysmal dilatation of aorta is noted. The trachea and major bronchi appear patent. The lung an demonstrate no evidence of alveolar consolidation or pleural fluid. No pneumothorax is noted. The visualized abdominal organs are grossly unremarkable. IMPRESSION: No evidence of pulmonary embolus is noted. No aortic dissection is identified. No alveolar consolidation is noted.
[2017-08-17 18:54] VITALS: BP 120/58
--- NOTE | 2017-08-20 15:59 | ED ---
Akash Andrade Nilda, scribed for Carla Aguilar MD on 08/17/17 at 1535 . Shortness of Breath - HPI Summary HPI Summary: This patient is a 67 year old F [facility] accompanied by with a chief complaint of constant SOB since yesterday. The patient rates the pain 2/ 10 in severity. Symptoms aggravated by exertion and alleviated by nothing. Patient reports abd pain (heaviness), bilateral weakness, and tremors. Patient denies cough and chest pressure. She had a full knee replacement 3 weeks ago, and was taken off Coumadin 1 week ago. PCP recommended patient visit ED to r/o PE. No PMHx HTN, DM, and asthma. - History of Current Complaint Chief Complaint: EDShortnessOfBreath Time Seen by Provider: 08/17/17 14:19 Hx Obtained From: Patient Onset/Duration: Sudden Onset, Lasting Days, Still Present Timing: Constant Current Severity: Mild Aggrevating Factors: Other - Exertion Alleviating Factors: Nothing - Allergy/Home Medications Allergies/Adverse Reactions: Allergies Allergy/AdvReac Type Severity Reaction Status Date / Time raw onion Allergy Swelling Uncoded 07/28/17 15:21 Of Face,Lips,& Throat PMH/Surg Hx/FS Hx/Imm Hx Endocrine/Hematology History: Reports: Hx Thyroid Disease - ON MEDICATION FOR Denies: Hx Diabetes Cardiovascular History: Denies: Hx Hypertension, Hx Pacemaker/ICD Respiratory History: Reports: Hx Sleep Apnea - NO MACHINE- SLEEPS ON SIDE, Other Respiratory Problems/Disorders - HX OF PNEUMONIA- NOT RECENTLY Denies: Hx Asthma History: Denies: Hx Renal Disease Sensory History: Reports: Hx Contacts or Glasses - GLASSES Denies: Hx Hearing Aid Opthamlomology History: Reports: Hx Contacts or Glasses - GLASSES Neurological History: Reports: Hx Headaches, Hx Migraine - OCCASIONALLY- ANESTHESIA CAN BRING THEM ON PER PATIENT Psychiatric History: Reports: Hx Depression - ON MEDICATION FOR Denies: Hx Panic Disorder - Cancer History Cancer Type, Location and Year: RT BREAST CA Hx Chemotherapy: No Hx Radiation Therapy: No - Surgical History Surgery Procedure, Year, and Place: TONSILS- A CHILD. APPY-1982. [id number], RIGHT KNEE AND RT FOOT SURGERY-1964&2002, LUMPECTOMY RIGHT BREAST WITH LYMPH NODE REMOVAL. LT FOOT - FOR PLANTAR FASCITIS Hx Anesthesia Reactions: No Infectious Disease History: No Infectious Disease History: Denies: Traveled Outside the [place] in Last 30 Days - Family History Known Family History: Positive: Other - negative PE Negative: Diabetes - Social History Lives: With Family Alcohol Use: Occasionally Substance Use Type: Reports: None Smoking Status (MU): Former Smoker Amount Used/How Often: 1 1/2 PPD 8 YEARS Have You Smoked in the Last Year: No Review of Systems Negative: Chest Pain Positive: Shortness Of Breath. Negative: Cough Positive: Abdominal Pain - heaviness Neurological: Other - tremors Positive: Weakness - bilateral All Other Systems Reviewed And Are Negative: Yes Physical Exam Triage Information Reviewed: Yes Vital Signs On Initial Exam: Initial Vitals Temp Pulse Resp BP Pulse Ox 97.4 F 87 20 100/67 100 08/17/17 14:06 08/17/17 14:06 08/17/17 14:06 08/17/17 14:06 08/17/17 14:06 Vital Signs Reviewed: Yes Appearance: Positive: Well-Appearing, No Pain Distress Skin: Positive: Warm, Skin Color Reflects Adequate Perfusion, Dry Eyes: Positive: EOMI, MORALES ENT: Positive: Pharynx normal, TMs normal Neck: Positive: Supple, Nontender Respiratory/Lung Sounds: Positive: Clear to Auscultation, Breath Sounds Present. Negative: Rales, Rhonchi, Wheezes Cardiovascular: Positive: RRR, Other - no gallop. Negative: Murmur, Rub Abdomen Description: Positive: Nontender, Soft, Other: - no rebound. Negative: Distended, Guarding Bowel Sounds: Positive: Present Musculoskeletal: Positive: Strength/ROM Intact. Negative: Edema Left, Edema Right Neurological: Positive: Sensory/Motor Intact, Alert, Oriented to Person Place, Time, CN Intact II-III Psychiatric: Positive: Affect/Mood Appropriate Diagnostics - Vital Signs Vital Signs Temp Pulse Resp BP Pulse Ox 08/17/17 14:06 97.4 F 87 20 100/67 100 - Laboratory Lab Results: Lab Results 08/17/17 08/17/17 08/17/17 Range/Units 15:20 15:55 15:55 WBC 8.2 (3.5-10.8) 10^3/ul RBC 3.50 L (4.0-5.4) 10^6/ul Hgb 10.7 L (12.0-16.0) g/dl Hct 32 L (35-47) % MCV 92 (80-97) fL MCH 31 (27-31) pg MCHC 33 (31-36) g/dl RDW 14 (10.5-15) % Plt Count 316 (150-450) 10^3/ul MPV 8 (7.4-10.4) um3 Neut % (Auto) 69.6 (38-83) % Lymph % (Auto) 20.3 L (25-47) % [place] % (Auto) 8.7 (1-9) % Eos % (Auto) 0.4 (0-6) % Baso % (Auto) 1.0 (0-2) % Absolute Neuts (auto) 5.7 (1.5-7.7) 10^3/ul Absolute Lymphs (auto) 1.7 (1.0-4.8) 10^3/ul Absolute Monos (auto) 0.7 (0-0.8) 10^3/ul Absolute Eos (auto) 0 (0-0.6) 10^3/ul Absolute Basos (auto) 0.1 (0-0.2) 10^3/ul Absolute Nucleated RBC 0 10^3/ul Nucleated RBC % 0 Sodium 139 (133-145) mmol/L Potassium 3.3 L (3.5-5.0) mmol/L Chloride 107 (101-111) mmol/L Carbon Dioxide 25 (22-32) mmol/L Anion Gap 7 (2-11) mmol/L BUN 12 (6-24) mg/dL Creatinine 0.60 (0.51-0.95) mg/dL Est GFR ( Amer) 127.5 (>60) Est GFR (Non-Af Amer) 99.1 (>60) BUN/Creatinine Ratio 20.0 (8-20) Glucose 79 (70-100) mg/dL Lactic Acid (0.5-2.0) mmol/L Calcium 9.2 (8.6-10.3) mg/dL Total Bilirubin 0.40 (0.2-1.0) mg/dL AST 25 (13-39) U/L ALT 14 (7-52) U/L Alkaline Phosphatase 86 (34-104) U/L Troponin I 0.00 (<0.04) ng/mL B-Natriuretic Peptide ( - 100) pg/mL Total Protein 6.6 (6.4-8.9) g/dL Albumin 3.7 (3.2-5.2) g/dL Globulin 2.9 (2-4) g/dL Albumin/Globulin Ratio 1.3 (1-3) Urine Color Nathalie Urine Appearance Clear Urine pH 5.0 (5-9) Ur Specific [place] 1.018 (1.010-1.030) Urine Protein Negative (Negative) Urine Ketones 1+ H (Negative) Urine Blood Negative (Negative) Urine Nitrate Negative (Negative) Urine Bilirubin Negative (Negative) Urine Urobilinogen Negative (Negative) Ur Leukocyte Esterase Negative (Negative) Urine Glucose Negative (Negative) 08/17/17 08/17/17 Range/Units 15:55 15:55 WBC (3.5-10.8) 10^3/ul RBC (4.0-5.4) 10^6/ul Hgb (12.0-16.0) g/dl Hct (35-47) % MCV (80-97) fL MCH (27-31) pg MCHC (31-36) g/dl RDW (10.5-15) % Plt Count (150-450) 10^3/ul MPV (7.4-10.4) um3 Neut % (Auto) (38-83) % Lymph % (Auto) (25-47) % [place] % (Auto) (1-9) % Eos % (Auto) (0-6) % Baso % (Auto) (0-2) % Absolute Neuts (auto) (1.5-7.7) 10^3/ul Absolute Lymphs (auto) (1.0-4.8) 10^3/ul Absolute Monos (auto) (0-0.8) 10^3/ul Absolute Eos (auto) (0-0.6) 10^3/ul Absolute Basos (auto) (0-0.2) 10^3/ul Absolute Nucleated RBC 10^3/ul Nucleated RBC % Sodium (133-145) mmol/L Potassium (3.5-5.0) mmol/L Chloride (101-111) mmol/L Carbon Dioxide (22-32) mmol/L Anion Gap (2-11) mmol/L BUN (6-24) mg/dL Creatinine (0.51-0.95) mg/dL Est GFR ( Amer) (>60) Est GFR (Non-Af Amer) (>60) BUN/Creatinine Ratio (8-20) Glucose (70-100) mg/dL Lactic Acid 0.9 (0.5-2.0) mmol/L Calcium (8.6-10.3) mg/dL Total Bilirubin (0.2-1.0) mg/dL AST (13-39) U/L ALT (7-52) U/L Alkaline Phosphatase (34-104) U/L Troponin I (<0.04) ng/mL B-Natriuretic Peptide 95 ( - 100) pg/mL Total Protein (6.4-8.9) g/dL Albumin (3.2-5.2) g/dL Globulin (2-4) g/dL Albumin/Globulin Ratio (1-3) Urine Color Urine Appearance Urine pH (5-9) Ur Specific [place] (1.010-1.030) Urine Protein (Negative) Urine Ketones (Negative) Urine Blood (Negative) Urine Nitrate (Negative) Urine Bilirubin (Negative) Urine Urobilinogen (Negative) Ur Leukocyte Esterase (Negative) Urine Glucose (Negative) Result Diagrams: 08/17/17 15:55 08/17/17 15:55 Lab Statement: Any lab studies that have been ordered have been reviewed, and results considered in the medical decision making process. - CT CTA Chest CT Interpretation Completed By: Radiologist - No evidence of pulmonary embolus is noted. No aortic dissection is identified. no alveolar consolidation is noted. ED physician reviewed this report and agrees. - EKG 1831 Cardiac Rate: NL - 73 bpm EKG Rhythm: Sinus Rhythm ST Segment: Normal Re-Evaluation - Re-Evaluation First Eval Re-Evaluation Time: 18:22 Comment: Reviewed labs with patient. Course/Dx - Course Course Of Treatment: unable to find an etiology for this pts weakness and sob will have pt ambulated with vital signs before discharge. no pe, no mi, normal ekg - Diagnoses Provider Diagnoses: Weakness, SOB (shortness of breath) Discharge - Discharge Plan Condition: Stable Disposition: HOME Patient Education Materials: Weakness (ED), Dyspnea (ED) Referrals: Humaira Vu MD [Primary Care Provider] - 3 Days Additional Instructions: RETURN TO THE EMERGENCY DEPARTMENT FOR CHANGING OR WORSENING SYMPTOMS. The documentation as recorded by the Akash rankin Nilda accurately reflects the service I personally performed and the decisions made by me, Carla Aguilar MD.
== END | disposition home or self-care (01) ==
LOC: ED 14:04
DX: R06.02 Shortness of breath (principal); R53.1 Weakness; Z87.891 Personal history of nicotine dependence
CPT/HCPCS: 36415; 71275; 80053; 81003; 83605; 83880; 84484; 85025; 87040; 93005; 99283; Q9967

== ENCOUNTER 2017-10-04 20:52 | Emergency (ER) | payer MEDICARE, BC ==
[2017-10-04] MEDS ORDERED: Morphine INJ* 4 MG/ML 1 ML CARPUJECT IV ONE ×2 (22:02→23:09)
[2017-10-04] MEDS ORDERED: Morphine INJ* 2 MG/ML 1 ML SYRINGE (TWO MG - NEW SYRINGE VERSION) ONE (22:12)
[2017-10-04] MEDS ORDERED: HYDROmorphone INJ* 2 MG/ML CARPUJECT SYRINGE IV SLOW PU ONE ×2 (23:26→23:27)
--- NOTE | 2017-10-05 00:12 | ED ---
Nica Andrade Alfonso, scribed for Aj Goode MD on 10/04/17 at 2200 . Adult Trauma - HPI Summary HPI Summary: This patient is a 67 year old F presenting to [facility] accompanied by with a chief complaint of left shoulder pain s/p a mechanical fall walking upstairs at approximately 2000 today. She reports I started to fall and with my arm I tried to catch myself and my left arm went right back. The patient rates the pain 10/10 in severity. Symptoms aggravated by palpation. Symptoms alleviated by nothing. Patient reports LUE numbness. Patient denies being on a blood thinner. - History of Current Complaint Chief Complaint: EDShoulderClavicleInj Stated Complaint: LT SHOULDER INJURY Hx Obtained From: Patient Mechanism of Injury: Fall Force: Direct Onset/Duration: Started Minutes Ago, Traumatic Onset of Pain: Prior to Arrival Current Severity: Severe Pain Intensity: 10 Pain Scale Used: 0-10 Numeric Location: Extremities - L shoulder Aggravating Factor(s): Palpation Alleviating Factor(s): Nothing Associated Signs & Symptoms: Positive: Numbness/Weakness - Additional Pertinent History Primary Care Physician: [id number] - Allergy/Home Medications Allergies/Adverse Reactions: Allergies Allergy/AdvReac Type Severity Reaction Status Date / Time raw onion Allergy Swelling Uncoded 07/28/17 15:21 Of Face,Lips,& Throat PMH/Surg Hx/FS Hx/Imm Hx Endocrine/Hematology History: Reports: Hx Thyroid Disease - ON MEDICATION FOR Denies: Hx Diabetes Cardiovascular History: Denies: Hx Hypertension, Hx Pacemaker/ICD Respiratory History: Reports: Hx Sleep Apnea - NO MACHINE- SLEEPS ON SIDE, Other Respiratory Problems/Disorders - HX OF PNEUMONIA- NOT RECENTLY Denies: Hx Asthma History: Denies: Hx Renal Disease Sensory History: Reports: Hx Contacts or Glasses - GLASSES Denies: Hx Hearing Aid Opthamlomology History: Reports: Hx Contacts or Glasses - GLASSES EENT History: Denies: Hx Deafness Neurological History: Reports: Hx Headaches, Hx Migraine - OCCASIONALLY- ANESTHESIA CAN BRING THEM ON PER PATIENT Psychiatric History: Reports: Hx Depression - ON MEDICATION FOR Denies: Hx Panic Disorder - Cancer History Cancer Type, Location and Year: RT BREAST CA Hx Chemotherapy: No Hx Radiation Therapy: No - Surgical History Surgery Procedure, Year, and Place: TONSILS- A CHILD. APPY-1982. [id number], RIGHT KNEE AND RT FOOT SURGERY-1964&2002, LUMPECTOMY RIGHT BREAST WITH LYMPH NODE REMOVAL. LT FOOT - FOR PLANTAR FASCITIS Hx Anesthesia Reactions: No Infectious Disease History: No Infectious Disease History: Denies: Traveled Outside the [place] in Last 30 Days - Family History Known Family History: Positive: Other - Cancers in mother, negative PE Negative: Diabetes - Social History Alcohol Use: Occasionally Hx Substance Use: No Substance Use Type: Reports: None Hx Tobacco Use: Yes Smoking Status (MU): Former Smoker Amount Used/How Often: 1 1/2 PPD 8 YEARS Have You Smoked in the Last Year: No Review of Systems Negative: Fever Positive: Other - Left shoulder pain Positive: Numbness - LUE All Other Systems Reviewed And Are Negative: Yes Physical Exam - Summary Physical Exam Summary: Appearance: Well-appearing, Well-nourished, NAD, sitting in chair. Skin: Warm Eyes: Normal ENT: Normal Neck: Supple, nontender, normal Respiratory: Clear to auscultation Cardiovascular: Normal Abdomen: Soft, nontender Bowel: Present Musculoskeletal: Left shoulder diffuse tenderness small lateral deformity consistent with dislocation. Unable to abduct past 15 degree. Bilateral radial pulses normal. Good strength. Normal sensation in bilateral hands. Capillary refill normal bilaterally. Neurological: Normal, A&Ox3, Distal neurovascular intact Psychiatric: Normal Triage Information Reviewed: Yes Vital Signs On Initial Exam: Initial Vitals Temp Pulse Resp BP Pulse Ox 96.4 F 89 18 125/66 96 10/04/17 20:55 10/04/17 20:55 10/04/17 20:55 10/04/17 20:55 10/04/17 20:55 Vital Signs Reviewed: Yes Procedures - Joint Reduction Joint Reduction Site: shoulder (L) Conscious Sedation: No Reduction Attempts: 1 Pre-Procedure NV Exam: Yes Post Joint Reduction Film: joint reduced Diagnostics - Vital Signs Vital Signs Temp Pulse Resp BP Pulse Ox 10/04/17 20:55 96.4 F 89 18 125/66 96 - Laboratory Lab Statement: Any lab studies that have been ordered have been reviewed, and results considered in the medical decision making process. - Radiology CXR Radiology Interpretation Completed By: ED Physician - inferior anterior dislocation. Left shoulder XR Radiology Interpretation Completed By: ED Physician - inferior anterior dislocation. Unclear if hill-sachs is present. Possible small fracture of the inferior Glenoid. Left shoulder XR 2 Radiology Interpretation Completed By: ED Physician - Shoulder successfully reduced Re-Evaluation - Re-Evaluation First Eval Re-Evaluation Time: 23:25 Comment: Reviewed imaging and plan with patient and . Adult Trauma Course/Dx - Course Course Of Treatment: Shoulder successfully reduced confirmed on post reduction XR. Normal distal neurovascular exam post procedure. Patient placed in shoulder sling. She will follow up with orthopedics. Agrees and understand plan. - Diagnoses Provider Diagnoses: Closed dislocation of left shoulder - Physician Notifications Discussed Care Of Patient With: Jakob Goodrich Time Discussed With Above Provider: 23:28 Instructed by Provider To: Other - Consulted with Dr. Goodrich (orthopedics) at 2328 who recommends reduction in the ED setting and that no operative intervention is required at this time. Discharge - Discharge Plan Condition: Improved Disposition: HOME Referrals: Humaira Vu MD [Primary Care Provider] - The documentation as recorded by the Nica rankin Alfonso accurately reflects the service I personally performed and the decisions made by me, Aj Goode MD.
[2017-10-05 00:31] VITALS: BP 122/74
--- NOTE | 2017-10-05 07:38 | RAD ---
INDICATION: Left shoulder pain after a fall COMPARISON: Most recent comparison chest x-ray is July 14, 2017 TECHNIQUE: Single AP view of the chest was obtained. FINDINGS: The heart and mediastinum exhibit normal size and contour. The lungs are grossly clear. There is no evidence of a large pleural effusion. The left humeral head is dislocated medially relative to the bony glenoid labrum. There is apparent fracture of the humeral head. IMPRESSION: 1. No radiographic evidence for acute cardiopulmonary abnormality on this single AP view chest x-ray. 2. Humeral head fracture.
--- NOTE | 2017-10-05 07:42 | RAD ---
INDICATION: Left shoulder dislocation. COMPARISON: None. TECHNIQUE: 2 views of the left shoulder were obtained. FINDINGS: The humeral head is dislocated inferiorly and anteriorly relative to the bony glenoid labrum. There is a fracture fragment from the greater tuberosity measuring 1.6 cm in greatest dimension. The width of the acromioclavicular joint is top normal measuring 9 mm Remaining visualized bones are intact and appropriately aligned. IMPRESSION: 1. DISPLACED FRACTURE OF THE LEFT HUMERAL HEAD GREATER TUBEROSITY. 2. TOP NORMAL WITH OF THE ACROMIOCLAVICULAR JOINT, WIDER THAN A 2016 CHEST X-RAY COULD INDICATE GRADE 1 I AC SEPARATION.
--- NOTE | 2017-10-05 07:53 | RAD ---
HISTORY: Post reduction COMPARISONS: October 04, 2017 at 10:40 PM VIEWS: 2, frontal and outlet views of the left shoulder at 11:53 PM. FINDINGS: BONE DENSITY: Normal. BONES: Again noted is a fracture along the greater tuberosity of the left humerus. JOINTS: There is no arthropathy. ALIGNMENT: There has been interval reduction of the left shoulder dislocation. SOFT TISSUES: Unremarkable. OTHER FINDINGS: None. IMPRESSION: THERE HAS BEEN INTERVAL REDUCTION OF THE LEFT SHOULDER DISLOCATION. AGAIN NOTED IS A FRACTURE OF THE GREATER TUBEROSITY OF THE LEFT HUMERUS.
== END 2017-10-05 00:30 | disposition home or self-care (01) ==
LOC: ED 20:52
DX: S43.005A Unspecified dislocation of left shoulder joint, initial encounter (principal); W10.9XXA Fall (on) (from) unspecified stairs and steps, initial encounter; Y92.9 Unspecified place or not applicable; E07.9 Disorder of thyroid, unspecified; F32.9 Major depressive disorder, single episode, unspecified; Z87.891 Personal history of nicotine dependence; Z85.3 Personal history of malignant neoplasm of breast
CPT/HCPCS: 23650; 71010; 96374; 96375; 96376; 99282; J1170; J2270

== ENCOUNTER 2018-01-03 11:38 | Day surgery (SDC) | payer MEDICARE, BC, OTHER ==
--- NOTE | 2017-12-28 23:04 | HP ---
PREOPERATIVE HISTORY AND PHYSICAL: DATE OF SURGERY: 01/03/18 ATTENDING SURGEON: Dr. Rolando Nagel.* (DICTATED BY CHARISMA CHAUHAN) PROCEDURE: Left shoulder arthroscopic rotator cuff repair, decompression, debridement, and possible arthroscopic biceps tenodesis. CHIEF COMPLAINT: Left shoulder pain. HISTORY OF PRESENT ILLNESS: Nat is a 67-year-old female who presents to the clinic for followup of her left shoulder fracture, dislocation with mild displaced greater tuberosity fracture. She has failed conservative measures to include PT and has agreed to undergo a left shoulder arthroscopic rotator cuff repair, decompression, debridement and possible arthroscopic biceps tenodesis with Dr. Nagel on 01/03/18. PAST MEDICAL HISTORY: History of breast cancer, hypothyroidism, trace aortic insufficiency, mitral valve disorder, obstructive sleep apnea, and hyperlipidemia. PAST SURGICAL HISTORY: Appendectomy, hysterectomy, right knee scope x2, right total knee arthroplasty, tonsillectomy, right foot removal of loose bodies, left foot plantar fascia release, right breast lumpectomy. The patient denies prior complications with anesthesia. MEDICATIONS: 1. Cyclobenzaprine HCl 10 mg 1 by mouth twice a day as needed. 2. Sumatriptan succinate 6 mg/0.5 mL inject 1 vial subcutaneous as needed for severe headache, may repeat in 1 hour. 3. Verapamil HCl ER 120 mg daily. 4. Cymbalta 60 mg 1 by mouth daily. 5. Diazepam 10 mg 1 by mouth as needed. 6. Multivitamin 1 cap daily. 7. Aspirin 81 mg 1 by mouth daily. 8. Levothyroxine 75 mcg 1 by mouth daily. 9. Reclast 5 mg for 100 mL infusion once yearly. 10. Vitamin D3 2000 units 1 by mouth every day. 11. CoQ10 maximum strength 200 mg 1 by mouth every day. 12. Pravastatin 20 mg 1 by mouth daily at bedtime. 13. Aleve 220 mg 1 by mouth as needed. 14. Cymbalta 30 mg 1 by mouth every day. ALLERGIES: No known drug allergies. FAMILY HISTORY: Positive for paternal and maternal heart disease and cancer. SOCIAL HISTORY: She lives with her . 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 She denies tobacco use. She reports occasional alcohol consumption. REVIEW OF SYSTEMS: A 14-point review of systems was reviewed with the patient. Positive for current complaint, otherwise negative. Denies chest pain, shortness of breath, fever, chills, history of DVT or PE, or history of bleeding disorder. PHYSICAL EXAMINATION GENERAL: A 67-year-old well-developed, well-nourished female, in no acute distress. Alert and oriented x3. Appropriate mood and affect. VITAL SIGNS: Height 68, weight 185. Blood pressure 116/68, respiratory rate 18 , temperature 97.4, BMI of 28.1. HEENT: Normocephalic, atraumatic. PERRLA. Throat clear. NECK: Supple. PULMONARY: Lungs are clear to auscultation bilaterally. No wheezing, rhonchi, or rales. CARDIOVASCULAR: Regular rate and rhythm. S1, S2. No murmurs, gallops, or rubs. No edema. ABDOMEN: Positive bowel sounds, soft, nontender. MUSCULOSKELETAL: Left upper extremity, skin is intact. No evidence of erythema. Active range of motion. Forward flexion and abduction to 145. External rotation to 10. Passive forward flexion to 120. Full range of motion of the elbow, wrist, and hand. +2 radial pulses. Sensation intact to light touch distally. NEUROLOGIC: Alert and oriented x3. Cranial nerves grossly intact. Sensation intact to light touch. STUDIES: MRI revealed avulsion fracture with small amounts of retraction and the subscapularis is intact. IMPRESSION: Left shoulder rotator cuff repair and biceps tendonitis. PLAN: The patient is scheduled to undergo a left shoulder arthroscopic rotator cuff repair, decompression, debridement and possible arthroscopic biceps tenodesis with Dr. Nagel on 01/03/18. She will follow up in 10 to 14 days postop for followup and suture removal. Tylenol with Codeine and 5 days of extended release morphine will be used for postop pain management. CHARISMA CHAUHAN [id number]/[facility] #: [id number] YOAV
[~2018-01-03 11:38] MED LIST changes: +Buffered Lidocaine 0.9% SYRIN* 5 ML/SYR SYRINGE INTRADERM ONE; +Dexamethasone IV* 4 MG/ML 1 ML (4 MG) IV SLOW PU ONE; +Famotidine IV* 10 MG/ML 2 ML (20 mg) IV ONE; -Iohexol 350* (CONTRAST) 500 ML MDV IV ONE; +Lidocaine 2% PF * 5 ML VIAL ONE; +Midazolam* 1 MG/ML 2 ML VIAL (2 MG) ONE; -NS 0.9% 1000 ML* 1,000 ML IV ONE; +Propofol* 10 MG/ML 20 ML BTL IV PUSH ONE; +Rocuronium* 10 MG/ML VIAL ONE; +fentaNYL* 50 MCG/ML 2 ML VIAL (100 MCG VIAL) ONE
[2018-01-03] MEDS ORDERED: Dexamethasone IV* 4 MG/ML 1 ML (4 MG) ONE (12:00)
[2018-01-03] MEDS ORDERED: Famotidine IV* 10 MG/ML 2 ML (20 mg) ONE (12:00)
[2018-01-03] MEDS ORDERED: ceFAZolin 2 GM in 100 MLS NS (*) BAG IVPB ONE (12:00)
[2018-01-03] MEDS ORDERED: Bupivacaine 0.5% SDV PF* 10-30ML VIAL ONE (12:06)
[2018-01-03] MEDS ORDERED: Bupivacaine 0.25% SDV* 30 ML ONE (12:19)
[2018-01-03] MEDS ORDERED: Acetaminophen IV 1GM/100ML * 100 ML ONE (12:34)
[2018-01-03] MEDS ORDERED: HYDROmorphone INJ* 1 MG/ML CARPUJECT SYRINGE ONE (14:24)
[2018-01-03] MEDS ORDERED: Ketorolac INJ* 30 MG/ML 1 ML VIAL ONE (14:25)
[2018-01-03] MEDS ORDERED: Ondansetron INJ* 2 MG/ML VIAL ONE (14:25)
[2018-01-03] MEDS ORDERED: Glycopyrrolate IV* 0.2 MG/ML 1 ML VIAL ONE (14:41)
[2018-01-03] MEDS ORDERED: Neostigmine Methylsulfate* 2 MG/2 ML SYRINGE ONE (14:41)
[2018-01-03] MEDS ORDERED: Naloxone* 0.4 MG/ML 1 ML VIAL IV PRN (14:43)
[2018-01-03] MEDS ORDERED: oxyCODONE TAB* 5 MG TAB PO PRN ×2 (14:43)
[2018-01-03] MEDS ORDERED: diPHENhydraMINE IV* 50 MG/ML 1 ml VIAL (BENADRYL) IV PRN (14:43)
[2018-01-03] MEDS ORDERED: HYDROmorphone INJ* 1 MG/ML CARPUJECT SYRINGE IV PRN (14:43)
[2018-01-03] MEDS ORDERED: Ondansetron INJ* 2 MG/ML VIAL IV PRN (14:43)
[2018-01-03] MEDS ORDERED: PROCHLORPERAZINE INJ 5 MG/ML 2 ML VIAL IV PRN (14:43)
[2018-01-03] MEDS ORDERED: fentaNYL* 50 MCG/ML 2 ML VIAL (100 MCG VIAL) IV PRN (14:43)
[2018-01-03] MEDS ORDERED: Scopolamine 1.5 mg* PATCH TRANSDERM PRN (14:43)
[2018-01-03 17:36] VITALS: BP 111/61
--- NOTE | 2018-01-04 14:09 | OP ---
CC: PCP, Humaira Vu MD * DATE OF OPERATION: 01/03/18 - [facility] DATE OF : 46 SURGEON: Rolando Nagel MD BENCH HAND MACHINE: CHARISMA Quarles. An fundraising assistant was needed for the entirety of the case to help with positioning, retraction, and was utilized throughout all portions of the case. ANESTHESIOLOGIST: Dr. Abernathy. ANESTHESIA: General with a possible postoperative block. PRE-OP DIAGNOSIS: Left shoulder fracture dislocation. POST-OP DIAGNOSES: Left shoulder fracture dislocation of the greater tuberosity with bicipital tendinitis as well as a SLAP tear, mild osteoarthritis with a chondral defect. OPERATIVE PROCEDURES: 1. Left shoulder arthroscopy with extensive glenohumeral debridement including chondroplasty. 2. Arthroscopic biceps tenodesis. 3. Rotator cuff repair of the supraspinatus in a double-row fashion. 4. Subacromial decompression with acromioplasty. IMPLANTS USED: Two 4.75 Healicoil, one Multifix, and one 2.8 mm Q-Fix. COMPLICATIONS: None. ESTIMATED BLOOD LOSS: Minimal. INDICATIONS: Nat Mascorro is a 67-year-old female who fell on October 04 and had a fracture dislocation of her shoulder, she was reduced. She had persistent pain. She had a small greater tuberosity fracture. We talked about treatment options including open reduction and internal fixation, open rotator cuff versus arthroscopic rotator cuff repair. I felt that because she had a small piece, an open reduction and internal fixation was probably too aggressive and I did think a rotator cuff repair would be appropriate. She elected to proceed with nonoperative treatment to start with, tried to get her motion back, but she had persistent pain and inability to get back to her activities, so we discussed arthroscopic treatment. Risks and benefits were discussed and include but are not limited to bleeding, infection, damage to nerves, vessels, surrounding structures, wound nonhealing, persistent pain, need for further surgery, scarring, stiffness, incomplete relief of symptoms, risks of anesthesia, risk of DVT. She has elected to proceed with surgery. DESCRIPTION OF PROCEDURE: The patient was greeted in the preoperative area by the attending surgeon. The correct extremity was marked, consent was confirmed. The patient elected to get a block postoperatively if she had a lot of pain. The patient was then brought back to the operating suite. She was placed in a supine position on the operating table. She underwent general anesthesia with endotracheal intubation, after which she was placed in the right lateral decubitus position. All bony prominences were padded. The left arm was draped unsterile with 10 pounds of traction. The left shoulder was prepped and draped in the usual sterile fashion beginning with chlorhexidine soap, scrub, and alcohol wipe and a final prep with ChloraPrep. After appropriate surgical pause indicating side, site, procedure, and administration of antibiotics, the posterolateral portal was made sharply with an 11 blade. Scope was introduced into the joint. There was abundant erythema and inflammation in the joint. The glenohumeral joint had smaller areas where there were grade 2 changes with unstable flaps on the humerus. Glenoid had grade 0 to 1 changes. The anterior, posterior, and superior labrum had fraying. Superior labrum had tearing as well with a large thick tendinopathic as well as inflamed biceps that was subluxed. The subscap was intact although had a mild amount of partial-thickness tearing of the superior 5% or so. There was abundant synovitis in the joint. The anterior portal was made in an outside -in fashion. Shaver was used to debride back the anterior, posterior, and superior labrum as well as do a small chondroplasty of the humeral defect. There were no obvious loose bodies. The inferior recess had abundant synovitis. The biceps was then visualized and decision was made to proceed with arthroscopic tenodesis. At this point, the scope was introduced to subacromial space. There was abundant significant erythema and edema as well as bursitis. The lateral portal was made in an outside-in fashion. Shaver was used to debride back the abundant synovitis. The cuff was then probed, it had previously been marked as there was some evidence of healing, however, healed incorrectly more medially as well as posteriorly. The electrocautery device was used to skeletonize the undersurface of the acromion which then underwent acromioplasty by the 4-0 oval brooks. All excess debris and fluid was removed. Attention was directed to the rotator cuff. There was an obvious defect where the greater tuberosity had torn. There were no obvious loose pieces evident in the bursa. The cuff tendon was probed and there was an area where it had partially healed. The cuff was then carefully mobilized and this helped to identify the biceps anteriorly. The biceps was then carefully mobilized. Through a separate stab incision, a 2.8 mm Q-Fix anchor was then placed in the groove. The sutures were then passed through the tendon in a looped configuration to secure the tendon. The tendon was then tenotomized. This was then tied down using arthroscopic knot tying. After this was done, attention was directed to the rotator cuff repair. Again, there was abundant bleeding due to the nature of the fracture. There was a small defect where the greater tuberosity had torn off. The cuff was carefully mobilized and then reapproximated to the appropriate position. Once this was done, through separate stab incisions, two 4.75 Healicoil were placed in the medial row. These were placed with excellent purchase. The sutures were then passed to the tendon in a horizontal mattress configuration and then tied down using arthroscopic knot tying. A small microfracture was done in the greater tuberosity to allow for greater blood flow and healing potential. The supraspinatus was then tied down. The sutures were then passed through a Multifix anchor for lateral row fixation. The bone quality was not very good especially in the greater tuberosity area which is expected and laterally the bone quality was adequate. Once the cuff had been secured, final images were obtained, the joint was taken through range of motion and found to be in good position. All fluids and debris were removed from the shoulder. The portals were irrigated and closed with 3-0 nylon. Sterile dressings were applied as well as a Cryo/Cuff and UltraSling. She was awoken from anesthesia and transferred to the PACU in stable condition. POSTOPERATIVE PLAN: She will be nonweightbearing. She will be in a sling for 6 weeks. She will be discharged with pain medication. DVT prophylaxis considered but deferred due to no previous personal or family history. I will see the patient back in 10 to 14 days. [id number]/[facility] #: [id number] YOAV
[2018-01-06] MEDS ORDERED: Scopolamine PATCH Remove* 1 NOTE MISC PATCH OFF ONE (14:44)
== END 2018-01-03 17:30 | disposition home or self-care (01) ==
LOC: OR 11:38
PROVIDERS: ATTEND Orthopaedic Surgery
DX: S42.252A Displaced fracture of greater tuberosity of left humerus, initial encounter for closed fracture (principal); M75.22 Bicipital tendinitis, left shoulder; S43.492A Other sprain of left shoulder joint, initial encounter; W19.XXXA Unspecified fall, initial encounter; Y92.9 Unspecified place or not applicable; M19.012 Primary osteoarthritis, left shoulder; Z87.891 Personal history of nicotine dependence; I47.1 Supraventricular tachycardia; I08.3 Combined rheumatic disorders of mitral, aortic and tricuspid valves; E03.9 Hypothyroidism, unspecified; Z85.3 Personal history of malignant neoplasm of breast; G47.33 Obstructive sleep apnea (adult) (pediatric); I27.20 Pulmonary hypertension, unspecified
CPT/HCPCS: C1713; C1776; J1100; J1170; J1885; J2250; J2405; J2704; J3010